=== PATIENT | male | born 1985 | race Caucasian/White ===

== ENCOUNTER 2018-09-16 11:52 | Inpatient (IN) | payer MEDICARE, OTHER ==
[~2018-09-16] VITALS: Ht 162.6 cm; Wt 70.3 kg
[~2018-09-16 11:52] MED LIST: FERR-89 PO; RISP1 PO
[2018-09-16 15:17] VITALS: BP 109/71
[2018-09-16] MEDS ORDERED: LORazepam 2 MG TABLET PO PRN (15:30)
[2018-09-16] MEDS ORDERED: HALOPERIDOL 5 MG TABLET PO PRN (15:30)
[2018-09-16] MEDS ORDERED: ZOLPIDEM TARTRATE 10 MG TABLET PO PRN (15:30)
[2018-09-16] MEDS ORDERED: NICOTINE 21 MG/24 HOUR PATCH TD SCH (16:00)
[2018-09-16] MEDS ORDERED: OLAN10TA3 PO (16:01)
[2018-09-16 16:59] VITALS: BP 102/63
[2018-09-16] MEDS: OLANZapine 10 MG TABLET PO SCH (20:29)
[2018-09-17 06:15] VITALS: BP 108/65
[2018-09-17 07:44] LABS: BASOPHILS % (AUTO) 0.8 % (0.0-2.0); EOSINOPHILS % (AUTO) 6.7 % (1.0-6.0); HEMATOCRIT 45.7 % (41-53); HEMOGLOBIN 15.7 g/dL (13.5-17.5); LYMPHOCYTES # (AUTO) 1.9 K/uL (1.0-4.8); MEAN CORPUSCULAR HEMOGLOBIN 31.1 pg (26.0-34.0); MEAN CORPUSCULAR HGB CONC 34.3 G/dL (31.0-37.0); MEAN CORPUSCULAR VOLUME 91 fL (80-100); MONOCYTES # (AUTO) 0.6 K/uL (0.1-1.0); MONOCYTES % (AUTO) 7.8 % (2.0-9.0); NEUTROPHILS # (AUTO) 4.6 K/uL (1.8-7.7); NEUTROPHILS % (AUTO) 59.7 % (40.0-70.0); PLATELET COUNT (AUTO) 178 K/uL (150-450); RED BLOOD CELL COUNT(AUTO) 5.04 MIL/uL (4.50-5.90)
[2018-09-17 07:51] LABS: HEMOGLOBIN A1C 5.8 % (4.5-6.2)
[2018-09-17 08:00] LABS: AMPHET/METH SCREEN,URINE NEGATIVE (NEGATIVE); BARBITURATE SCREEN, URINE NEGATIVE (NEGATIVE); BENZODIAZEPINES SCREEN,URINE NEGATIVE (NEGATIVE); CANNABINOID SCREEN,URINE NEGATIVE (NEGATIVE); COCAINE SCREEN,URINE NEGATIVE (NEGATIVE); METHADONE SCREEN, URINE NEGATIVE (NEGATIVE); OPIATE SCREEN,URINE NEGATIVE (NEGATIVE)
[2018-09-17 08:01] LABS: PHENCYCLIDINE SCREEN,URINE NEGATIVE (NEGATIVE)
[2018-09-17 08:07] VITALS: BP 110/60
[2018-09-17 08:15] LABS: ALANINE AMINOTRANSFERASE 26 U/L (12-78); ALBUMIN 3.7 g/dL (3.4-5.0); ALKALINE PHOSPHATASE 67 U/L (46-116); ANION GAP 7 mmol/L (8-16); ASPARTATE AMINOTRANSFERASE 15 U/L (15-37); BILIRUBIN,TOTAL 0.4 mg/dL (0.1-1.0); CALCIUM, TOTAL 8.8 mg/dL (8.8-10.5); CARBON DIOXIDE 29 mmol/L (22-29); CHLORIDE 106 mmol/L (98-107); CHOLESTEROL 215 mg/dL (131-200); CREATININE 1.03 mg/dL (0.60-1.30); FREE T4 (FREE THYROXINE) 0.79 ng/dL (0.76-1.46); GLOMERULAR FILTR. RATE CALC > 60 mL/min (>60); GLUCOSE,RANDOM 101 mg/dL (70-110); HDL CHOLESTEROL 54 mg/dL (40-60); LDL CHOL (CALC.) 142 mg/dL (0-130); POTASSIUM 4.4 mmol/L (3.5-5.1); SODIUM SERUM 142 mmol/L (136-145); THYROID STIMULATING HORMONE 1.75 uIU/mL (0.36-3.74); TOTAL PROTEIN, SERUM 6.7 g/dL (6.4-8.2); TRIGLYCERIDES 93 mg/dL (15-150); UREA NITROGEN, BLOOD 22 mg/dL (7-18)
[2018-09-17 08:36] LABS: APPEARANCE,URINE CLEAR (CLEAR); BILIRUBIN,URINE NEGATIVE (NEGATIVE); GLUCOSE, URINE (UA) NEGATIVE (NEGATIVE); KETONES,URINE NEGATIVE (NEGATIVE); LEUKOCYTE ESTERASE ,URINE NEGATIVE (NEGATIVE); NITRATE,URINE NEGATIVE (NEGATIVE); OCCULT BLOOD,URINE NEGATIVE (NEGATIVE); PROTEIN,URINE NEGATIVE (NEGATIVE); UROBILINOGEN,URINE 0.2 mg/dL (<=1.0)
[2018-09-17] MEDS: NICOTINE 21 MG/24 HOUR PATCH TD SCH (08:40)
[2018-09-17 16:12] VITALS: BP 127/65
[2018-09-17] MEDS ORDERED: OMEPRAZOLE 20 MG CAPSULE PO PRN (19:30)
[2018-09-17] MEDS ORDERED: ONDANSETRON HCL 4 MG TABLET PO PRN (19:30)
[2018-09-17] MEDS ORDERED: MAG HYDROX/AL HYDROX/SIMETH ES 30 ML SUSPENSION UDCUP PO PRN (19:30)
[2018-09-17] MEDS ORDERED: CloNIDine HCL 0.1 MG TABLET PO PRN (19:30)
[2018-09-17] MEDS ORDERED: BENZOCAINE/MENTHOL LOZENGE MM PRN (19:30)
[2018-09-17] MEDS ORDERED: DOCUSATE SODIUM 100 MG CAPSULE PO PRN (19:30)
[2018-09-17] MEDS ORDERED: MAGNESIUM HYDROXIDE SUSPENSION 30 ML UDCUP PO PRN (19:30)
[2018-09-17] MEDS ORDERED: ACETAMINOPHEN 325 MG TABLET PO PRN (19:30)
[2018-09-17] MEDS ORDERED: IBUPROFEN 600 MG TABLET PO PRN (19:30)
[2018-09-17] MEDS ORDERED: PETROLATUM,WHITE 71 GM JELLY TP PRN (19:30)
[2018-09-17] MEDS ORDERED: ALBUTEROL SULFATE HFA 90 MCG/PUFF 8 GM INHALER IH PRN (19:30)
[2018-09-17] MEDS ORDERED: LOPERAMIDE HCL 2 MG CAPSULE PO PRN (19:30)
[2018-09-17] MEDS ORDERED: BACITRACIN 28.4 GM OINTMENT TP PRN (19:30)
[2018-09-17] MEDS: OLANZapine 10 MG TABLET PO SCH (20:30)
[2018-09-17] MEDS: SIMVASTATIN 10 MG TABLET PO SCH (20:49)
[2018-09-18 05:50] VITALS: BP 101/64
[2018-09-18 08:11] VITALS: BP 109/67
[2018-09-18] MEDS: NICOTINE 21 MG/24 HOUR PATCH TD SCH (08:18)
[2018-09-18 16:06] VITALS: BP 112/68
[2018-09-18] MEDS: SIMVASTATIN 10 MG TABLET PO SCH (20:34)
[2018-09-18] MEDS: OLANZapine 10 MG TABLET PO SCH (20:35)
[2018-09-19 00:05] VITALS: BP 110/78
[2018-09-19 08:11] VITALS: BP 102/65
[2018-09-19] MEDS: NICOTINE 21 MG/24 HOUR PATCH TD SCH (08:37)
[2018-09-19 16:09] VITALS: BP 100/65
[2018-09-19] MEDS: SIMVASTATIN 10 MG TABLET PO SCH (20:37)
[2018-09-19] MEDS: OLANZapine 10 MG TABLET PO SCH (20:37)
[2018-09-20 05:58] VITALS: BP 104/62
[2018-09-20 08:08] VITALS: BP 105/60
[2018-09-20] MEDS: NICOTINE 21 MG/24 HOUR PATCH TD SCH (08:22)
[2018-09-20 16:10] VITALS: BP 100/67
[2018-09-20] MEDS: OLANZapine 10 MG TABLET PO SCH (20:29)
[2018-09-20] MEDS: SIMVASTATIN 10 MG TABLET PO SCH (20:29)
[2018-09-21] MEDS ORDERED: SIMV-259 PO (04:40)
[2018-09-21] MEDS ORDERED: NICO-704 TD (04:49)
[2018-09-21 06:00] VITALS: BP 120/81
[2018-09-21 08:24] VITALS: BP 109/61
[2018-09-21] MEDS: NICOTINE 21 MG/24 HOUR PATCH TD SCH (08:27)
== END 2018-09-21 14:19 | disposition home or self-care (01) | DRG 885 ==
LOC: B2X 15:24
PROVIDERS: ADMIT Psychiatry & Neurology Psychiatry; ATTEND Psychiatry & Neurology Psychiatry
DX: F20.0 Paranoid schizophrenia (principal); E78.00 Pure hypercholesterolemia, unspecified; F17.200 Nicotine dependence, unspecified, uncomplicated; G47.00 Insomnia, unspecified; K59.00 Constipation, unspecified; Z23 Encounter for immunization; Z79.899 Other long term (current) drug therapy
CPT/HCPCS: 80307; 83036; 84439; 84443; 90686